=== PATIENT | female | born 1980 | race Two or more races ===

== ENCOUNTER → 2024-05-11 | Day surgery (SDC) | payer BC | END | disposition home or self-care (01) | LOC: FRADUS-SUR 12:43 | PROVIDERS: ATTEND Registered Nurse | PROC: 0H9T3ZX Drainage of Right Breast, Percutaneous Approach, Diagnostic (ICD-10-PCS; principal; 2024-05-11) | DX: N60.31 Fibrosclerosis of right breast (principal); N63.14 Unspecified lump in the right breast, lower inner quadrant | CPT/HCPCS: 19083; 77065-TC; 87899; 88305-TC; A4648 ==